=== PATIENT | female | born 1950 ===

== ENCOUNTER 2018-09-16 07:00 | Inpatient (IN) | payer OTHER ==
[~2018-09-16] VITALS: Ht 152.4 cm; Wt 68.5 kg
[~2018-09-16 07:00] MED LIST: CLONAZEPAM0.5 MG PO; CRESTOR5 MG PO; CYMBALTA60 MG PO; DIOVAN160 M1 PO; SINGULAIR10 MG PO; ULTRACET PO; ZANTAC150 MG PO
[2018-09-16] MEDS ORDERED: AVAPRO150 MG PO (10:14)
[2018-09-18] MEDS ORDERED: TRAMADOL HCL50 MG PO (07:35)
[2018-09-18] MEDS ORDERED: KETOROLAC TROME10 MG PO (07:35)
[2018-09-18] MEDS ORDERED: POLY119PG PO (07:36)
[2018-09-18] MEDS ORDERED: NEURONTIN300 MG PO (07:36)
[2018-09-18] MEDS ORDERED: COLACE100 MG PO (07:37)
== END 2018-09-18 11:55 | disposition home or self-care (01) | DRG 748 ==
LOC: RECOVERY 07:00 → O/R 07:00 → EDSTATUS 07:00 → CIR.AMB 07:00 → SURG 07:00 → CIR.AMB 10:41 → SURH 09-17 13:11
PROVIDERS: ADMIT Surgery
PROC: 3E0T3BZ Introduction of Anesthetic Agent into Peripheral Nerves and Plexi, Percutaneous Approach (ICD-10-PCS; 2018-09-16)
PROC: 0JQC0ZZ Repair Pelvic Region Subcutaneous Tissue and Fascia, Open Approach (ICD-10-PCS; principal; 2018-09-16 07:15)
DX: N81.6 Rectocele (principal); K57.30 Diverticulosis of large intestine without perforation or abscess without bleeding; R15.9 Full incontinence of feces; I10 Essential (primary) hypertension; F41.8 Other specified anxiety disorders; R33.8 Other retention of urine

== ENCOUNTER 2021-10-13 02:24 | Inpatient (IN) | payer OTHER ==
[~2021-10-13] VITALS: Ht 165.1 cm; Wt 70.3 kg
[~2021-10-13 02:24] MED LIST changes: +AVAPRO150 MG PO; +COLACE100 MG PO; +KETOROLAC TROME10 MG PO; +NEURONTIN300 MG PO; +POLY119PG PO; +TRAMADOL HCL50 MG PO
[2021-10-19] MEDS ORDERED: ULTRAM50 MG PO (14:28)
== END 2021-10-19 14:53 | disposition home or self-care (01) | DRG 41 ==
LOC: ER 02:24 → SURH 07:09
PROVIDERS: ADMIT Surgery; ATTEND Surgery
PROC: 01HY0MZ Insertion of Neurostimulator Lead into Peripheral Nerve, Open Approach (ICD-10-PCS; 2021-10-15)
PROC: 0JPT0MZ Removal of Stimulator Generator from Trunk Subcutaneous Tissue and Fascia, Open Approach (ICD-10-PCS; 2021-10-15)
PROC: 01PY0MZ Removal of Neurostimulator Lead from Peripheral Nerve, Open Approach (ICD-10-PCS; principal; 2021-10-15 07:15)
PROC: BR27ZZZ Computerized Tomography (CT Scan) of Thoracic Spine (ICD-10-PCS; 2021-10-17)
DX: T85.122A Displacement of implanted electronic neurostimulator of spinal cord electrode (lead), initial encounter (principal); S32.010A Wedge compression fracture of first lumbar vertebra, initial encounter for closed fracture; T85.111A Breakdown (mechanical) of implanted electronic neurostimulator of peripheral nerve electrode (lead), initial encounter; M54.6 Pain in thoracic spine; R15.9 Full incontinence of feces; I10 Essential (primary) hypertension; Z20.822 Contact with and (suspected) exposure to COVID-19; E78.49 Other hyperlipidemia
CPT/HCPCS: 73725

== ENCOUNTER → 2022-01-19 | Emergency (ER) | payer OTHER ==
[~2022-01-19] VITALS: Ht 162.6 cm; Wt 69.9 kg
[~2022-01-19] MED LIST changes: +DIOVAN160 M1; +ULTRAM50 MG PO
== END | disposition home or self-care (01) ==
LOC: ER 14:47
DX: M54.9 Dorsalgia, unspecified (principal); I10 Essential (primary) hypertension; E11.9 Type 2 diabetes mellitus without complications; M19.90 Unspecified osteoarthritis, unspecified site